=== PATIENT | male | born 1965 | race Two or more races ===

== ENCOUNTER 2016-03-26 07:00 | Inpatient (IN) | payer MEDICARE, OTHER ==
[~2016-03-26] VITALS: Ht 182.9 cm; Wt 122.5 kg
[2016-09-06] VITALS (22 sets, daily range): BP systolic 73–143; BP diastolic 38–88; PULSE 58–70; RESP 16–29; Ht 182.9 cm; Wt 122.5 kg
[2016-09-06] MEDS ORDERED: VANCOMYCIN 1 GM (PMX) 250 ML IVPB ONE (06:00)
[2016-09-06] MEDS ORDERED: LACTATED RINGER'S 1,000 ML IV* SCH (06:00)
[2016-09-06] MEDS ORDERED: LANSOPRAZOLE 30 MG CAP PO ONE (06:00)
[2016-09-06] MEDS ORDERED: DEXAMETHASONE 4 MG/ML 1 ML INJ IV ONE (06:00)
[2016-09-06] MEDS ORDERED: CELECOXIB 200 MG CAP PO ONE (06:00)
[2016-09-06] MEDS ORDERED: ONDANSETRON 4 MG INJ IV ONE (06:00)
[2016-09-06] MEDS ORDERED: oxyCODONE (CR) 10 MG TAB [oxyCONTIN] PO ONE (06:00)
[2016-09-06] MEDS ORDERED: ACETAMINOPHEN 1000MG/100ML IV 100 ML IVPB ONE (06:00)
[2016-09-06] MEDS ORDERED: TRANEXAMIC ACID 2,000 MG in SOD CHLORIDE 0.9% 100 ML IVPB ONE ×2 (06:00→10:30)
[2016-09-06] MEDS ORDERED: AMLO1CAP10 PO (06:29)
--- NOTE | 2016-09-06 07:12 | HPN ---
Date/Time of Note Date/Time of Note DATE: 09/06/16 TIME: 07:12 Interval H&P Admission Note Pt. seen H&P reviewed: No system changes KARY VELAZQUEZ PA-C Sep 06, 2016 07:12
[2016-09-06] MEDS ORDERED: BACITRACIN 50000 UNITS INJ ONE (07:23)
[2016-09-06] MEDS ORDERED: HEPARIN 1000 UNITS/ML 10 ML INJ ONE (07:29)
[2016-09-06] MEDS ORDERED: POLYMYXIN B 500000 UNIT INJ ONE (07:29)
[2016-09-06] MEDS ORDERED: ROPIVACAINE 0.2% 100 ML ONE (07:29)
[2016-09-06] MEDS ORDERED: VANCOMYCIN 1 GM INJ ONE (07:29)
[2016-09-06] MEDS ORDERED: MIDAZOLAM 1 MG/ML 2 ML INJ ONE (07:50)
[2016-09-06] MEDS ORDERED: FENTAnyl 50 MCG/ML VIAL ONE (07:50)
[2016-09-06] MEDS ORDERED: SOD CHLORIDE 0.9% 50 ML, TRANEXAMIC ACID 2,000 MG IRR SCH ×2 (08:00)
[2016-09-06] MEDS ORDERED: HIP PAIN COCKTAIL VANCO INJ SCH ×7 (08:00)
[2016-09-06] MEDS ORDERED: ROPIVACAINE 0.5 % 30 ML VIAL ONE (08:05)
[2016-09-06] MEDS ORDERED: ROCURONIUM 50 MG INJ ONE ×4 (08:05→08:50)
[2016-09-06] MEDS ORDERED: SUCCINYLCHOLINE CHLORIDE 100 MG/5 ML SYG IV ONE (08:05)
[2016-09-06] MEDS ORDERED: PROPOFOL 100 ML ONE ×3 (08:05→11:20)
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
[2016-09-06] MEDS ORDERED: PHENYLephrine (100 MCG/ML) 5ML SYG ONE ×3 (08:27→09:02)
[2016-09-06] MEDS ORDERED: HETASTARCH 6% NACL 500 ML ONE (09:03)
[2016-09-06] MEDS ORDERED: BUPIVACAINE 0.25%/EPI (SDV) 30 ML INJ ONE (09:27)
[2016-09-06] MEDS ORDERED: METOCLOPRAMIDE 10 MG INJ ONE (09:31)
[2016-09-06] MEDS ORDERED: DEXAMETHASONE 4 MG/ML 1 ML INJ ONE (09:31)
[2016-09-06] MEDS ORDERED: ONDANSETRON 4 MG INJ ONE (09:31)
[2016-09-06] MEDS ORDERED: KETOROLAC 30 MG INJ ONE (09:31)
[2016-09-06] MEDS ORDERED: PHENYLephrine 10 MG INJ ONE (09:31)
[2016-09-06] MEDS ORDERED: ROPIVACAINE 0.2% 100ML BAG INJ ONE (09:39)
[2016-09-06] MEDS ORDERED: EPHEDrine SULFATE 50 MG/5 ML SYG IV PRN (10:30)
[2016-09-06] MEDS ORDERED: ONDANSETRON 4 MG INJ IV PRN (10:30)
[2016-09-06] MEDS ORDERED: HYDROmorphONE (0.2 MG/ML) 10ML SYG IV PRN ×3 (10:30)
[2016-09-06] MEDS ORDERED: ALBUMIN HUMAN 5% 250 ML IV PRN (10:30)
[2016-09-06] MEDS ORDERED: METOCLOPRAMIDE 10 MG INJ IV PRN (10:30)
[2016-09-06] MEDS ORDERED: morphine (1 MG/ML) 10ML SYRINGE IV PRN ×3 (10:30)
[2016-09-06] MEDS ORDERED: NEOSTIGMINE 3 MG/3 ML SYRINGE ONE (10:44)
[2016-09-06] MEDS ORDERED: GLYCOPYRROLATE 1 MG INJ ONE (10:44)
[2016-09-06] MEDS ORDERED: GELATIN SIZE 100 SPONGE ONE (11:39)
[2016-09-06] MEDS ORDERED: ZOLPIDEM 5 MG TAB PO PRN (12:30)
[2016-09-06] MEDS ORDERED: NACL 0.9% 3 ML SYG IV SCH (12:30)
[2016-09-06] MEDS ORDERED: SENNA/DOCUSATE NA (8.6MG/50MG) TAB PO PRN (12:30)
[2016-09-06] MEDS ORDERED: BISACODYL 10 MG SUPP PR PRN (12:30)
[2016-09-06] MEDS ORDERED: DIPHENHYDRAMINE 50 MG INJ IM PRN (12:30)
[2016-09-06] MEDS ORDERED: NALOXONE (0.4 MG/ML) INJ IV PRN (12:30)
[2016-09-06] MEDS ORDERED: NA PHOSPHATE/BIPHOS 133 ML ENEMA PR PRN (12:30)
[2016-09-06] MEDS ORDERED: HYDROmorphONE 0.2 MG/ML PCA IV PRN (12:30)
[2016-09-06] MEDS ORDERED: MAGNESIUM HYDROXIDE 30ML CUP PO PRN (12:30)
[2016-09-06] MEDS ORDERED: DOCUSATE SODIUM 100 MG CAP PO ONE (12:30)
[2016-09-06] MEDS ORDERED: BETHANECHOL 25 MG TAB PO PRN (12:30)
[2016-09-06] MEDS ORDERED: ASPIRIN (EC) 325 MG TAB PO ONE (12:30)
--- NOTE | 2016-09-06 12:34 | PDOCDIS ---
Discharge Instructions DIAGNOSIS Discharge Diagnosis: Status Post Left Total Hip Arthroplasty via posterior route CONDITION Patient Condition: Stable HOME CARE INSTRUCTIONS: Diet Instructions: Regular ACTIVITY: Activity Restrictions: Slowly Increase Activity Rest between Activity Avoid heavy lifting No Sexual Activity Do not Drive Do not operate Machinery Do not operate Power Tool Avoid Heavy Housework Keep Limb Elevated Weight Bearing (as tolerated and with help of front wheeled walker if needed.) Bathing Restrictions: Shower (with Tegaderm with pad. May remove tegaderm after area is dry and repeat with new Tegaderm each day until doretha have been removed around 10 days.) FOLLOW UP/APPOINTMENTS Appointments 09/26/16 at 2:15PM DVT Prophylaxis Pain Meds as needed KARY VELAZQUEZ PA-C Sep 06, 2016 12:34
[2016-09-06] MEDS ORDERED: CEFAZOLIN 1 GM/50 ML (PMX) 50 ML IVPB ONE (12:52)
--- NOTE | 2016-09-06 13:04 | RADRPT ---
PROCEDURE: XR Left Hip and pelvis. CLINICAL INDICATION: Left hip pain and pelvic pain. Intraoperative. TECHNIQUE: Two views. Frontal pelvis and frontal and left hip. COMPARISON: No prior studies are available for comparison. FINDINGS: Images demonstrate Scratch then the first image demonstrates severe degenerative change of the left hip and marked deformity of the left femoral head. The second image demonstrates component of a lef t hip total arthroplasty with satisfactory alignment. There is gas in the soft tissues related to the surgery. Pelvis is not completely included on the image. IMPRESSION: 1. Satisfactory intraoperative appearance of the left hip. 2. Otherwise unremarkable study. RPTAT: QQ .Efraín Mercado MD, MD Date Time Electronically viewed and signed by .Efraín Mercado MD, MD on 09/06/2016 13:04 .R/
[2016-09-06] MEDS: CEFAZOLIN 1 GM/50 ML (PMX) 50 ML IVPB SCH ×2 (13:05→21:03)
[2016-09-06] MEDS: ACETAMINOPHEN 1000MG/100ML IV 100 ML IVPB SCH ×2 (13:11→20:12)
[2016-09-06] MEDS: ONDANSETRON 4 MG INJ IV SCH ×2 (13:11→18:55)
--- NOTE | 2016-09-06 13:23 | PN ---
Date/Time of Note Date/Time of Note DATE: 09/06/16 TIME: 13:17 Assessment/Plan VTE Prophylaxis VTE Prophylaxis Intervention: other (on aspirin) Lines/Catheters IV Catheter Type (from Nrsg): Peripheral IV Subjective 24 Hr Interval Summary Free Text/Dictation josé is send in the recovery room, post op hip surgery not much discomfort but still has effects of epidural. bp is low without sx, drinking fluids and getting iv fluids alert and talkative vs with low bp lungs clear hr ok abd soft surg site clean, covered l hip ext with residual weakness from epidural in the legs Exam/Review of Systems Vital Signs Vitals Vital Signs Date Time Temp Pulse Resp B/P Pulse Ox O2 Delivery O2 Flow Rate FiO2 09/06/16 12:37 98.7 09/06/16 12:32 66 22 84/48 96 Room Air Medications Medications Current Medications Lactated Ringer's 1,000 ml @ 125 mls/hr Q8H IV* Last administered on 06:33; Admin Dose 125 MLS/HR; Start 09/06/16 at 06:00; Stop 09/06/16 at 13: 59 Dextrose/Lactated Ringer's (D5-Lr) 1,000 ml @ 80 mls/hr [id number] IV ; Start at 12:23 Hydromorphone HCl (Dilaudid HACK DRIVER) Q4PCA PRN IV SEVERE PAIN 8-10; Start at 12:30; Stop 09/07/16 at 09:00 Oxycodone HCl (Roxicodone) 20 mg Q3H PRN PO PAIN LEVEL 8-10; Start 09/07/16 at 09:00 Oxycodone HCl (Roxicodone) 10 mg Q3H PRN PO PAIN LEVEL 4-7; Start 09/07/16 at 09:00 Oxycodone HCl 5 mg 5 mg Q3H PRN PO PAIN LEVEL 1-3; Start 09/07/16 at 09:00 Acetaminophen (Ofirmev 1000mg/ 100ml Iv) 100 ml @ 400 mls/hr Q8H IVPB Last administered on 09/06/16 13:11; Admin Dose 400 MLS/HR; Start 09/06/16 at 13:00 ; Stop 09/08/16 at 05:14 Zolpidem Tartrate (Ambien) 5 mg HS PRN PO INSOMNIA; Start 09/06/16 at 12:30 Ondansetron HCl 4 mg 4 mg Q6H IV Last administered on 09/06/16 13:11; Admin Dose 4 MG; Start 09/06/16 at 13:00; Stop 09/07/16 at 07:01 Cefazolin Sodium (Ancef 1 Gm/50 ml (Pmx)) 50 ml @ 100 mls/hr Q8H IVPB Last administered on 09/06/16 13:05; Admin Dose 100 MLS/HR; Start 09/06/16 at 13:00 ; Stop 09/07/16 at 05:29 Aspirin (Ecotrin) 325 mg BID PO ; Start 09/07/16 at 09:00 Celecoxib (Celebrex) 200 mg BID PO ; Start 09/07/16 at 09:00 Dexamethasone (Decadron) 4 mg DAILY@07 IV ; Start 09/07/16 at 07:00; Stop at 06:59 Pantoprazole (Protonix Tab) 40 mg DAILY@06 PO ; Start 09/07/16 at 06:00 Docusate Sodium/ Ferrous Fumarate (Vinnie-Sequels) 1 tab BID PO ; Start 09/07/16 at 09:00 Docusate Sodium (Colace) 200 mg BID PO ; Start 09/07/16 at 09:00; Stop 09/09/16 at 21:01 Simethicone (Mylicon) 80 mg TID PRN PO DISTENSION/GAS/BLOATING; Start 09/06/16 at 12:30 Senna/Docusate Sodium (Senokot-S) 2 tab BID PRN PO CONSTIPATION; Start at 12:30 Magnesium Hydroxide (Milk Of Mag) 30 ml HS PRN PO CONSTIPATION; Start 09/06/16 at 12:30 Bisacodyl (Dulcolax Supp) 10 mg DAILY PRN SC CONSTIPATION; Start 09/06/16 at 12 :30 Sodium Biphosphate/ Sodium Phosphate (Fleet Enema) 133 ml DAILY PRN SC CONSTIPATION; Start 09/06/16 at 12:30 Diphenhydramine HCl (Benadryl) 25 mg Q4H PRN IM ITCHING OR RASH; Start at 12:30 Ketorolac Tromethamine (Toradol) 15 mg DAILY@06 PRN INJ ADMINSTER BY SURGEON ONLY; Start 09/07/16 at 06:00; Stop 09/09/16 at 06:01 Bupivacaine HCl/ Epinephrine Bitart (Marcaine 0.25%/ Epi (Sdv) 30 ml) 20 ml DAILY@06 PRN INJ ADMINSTER BY SURGEON ONLY; Start 09/07/16 at 06:00; Stop 09/09 at 06:01 Naloxone HCl (Narcan) 0.2 mg Q2M PRN IV DECREASED REPIRATORY RATE; Start at 12:30 VICKIE NAIDU MD Sep 06, 2016 13:23
--- NOTE | 2016-09-06 13:26 | RADRPT ---
PROCEDURE: XR left hip. CLINICAL INDICATION: Postoperative hip replaced TECHNIQUE: AP view available for review. COMPARISON: None available FINDINGS: There is a postoperative left total hip replacement. There is no evidence of loosening of the prosth esis. There is normal mineralization, architecture and alignment. No fractures are identified. No osseous lesions are present. The joints are unremarkable. There are postoperative soft tissue keyes ges. [address] IMPRESSION: Postoperative left total hip replacement Postoperative soft tissue changes RPTAT: HGDB .Darian Michaud MD, MD Date Time Electronically viewed and signed by .Darian Michaud MD, MD on 09/06/2016 13:25 .B/
[2016-09-06] MEDS: DEXTROSE 5%-LR 1,000 ML IV SCH (14:01)
[2016-09-06] MEDS ORDERED: oxyCODONE 5 MG TAB PO PRN ×2 (14:50→15:00)
[2016-09-06] MEDS: oxyCODONE 5 MG TAB PO PRN ×3 (15:20→22:10)
[2016-09-06] MEDS ORDERED: TRANEXAMIC ACID 1,230 MG in SOD CHLORIDE 0.9% 100 ML IVPB ONE ×2 (15:30→18:30)
[2016-09-07] MEDS: DEXTROSE 5%-LR 1,000 ML IV SCH ×2 (00:53→12:54)
[2016-09-07 01:00] VITALS: BP 117/69; PULSE 88; RESP 18
[2016-09-07] MEDS: ONDANSETRON 4 MG INJ IV SCH ×2 (01:14→06:38)
[2016-09-07] MEDS: oxyCODONE 5 MG TAB PO PRN ×5 (01:14→20:38)
[2016-09-07 05:12] LABS: ADD SCAN DIFF NO
[2016-09-07 05:20] VITALS: BP 127/64; RESP 18
[2016-09-07] MEDS: PANTOPRAZOLE (EC) 40 MG TAB PO SCH (05:21)
[2016-09-07] MEDS: CEFAZOLIN 1 GM/50 ML (PMX) 50 ML IVPB SCH (05:21)
[2016-09-07 05:22] LABS: BASOPHILS % 0.1 % (0.0-2.0); HEMATOCRIT 35.4 % (42.0-52.0); HEMOGLOBIN 11.7 g/dl (14.0-18.0); LYMPHOCYTES % 6.3 % (15.0-51.0); MEAN CORPUSCULAR HEMOGLOBIN 29.7 pg (29.0-33.0); MEAN CORPUSCULAR HGB CONC 33.1 g/dl (32.0-37.0); MEAN CORPUSCULAR VOLUME 89.8 fl (82.0-101.0); MEAN PLATELET VOLUME 9.6 fl (7.4-10.4); MONOCYTE # 1.2 10^3/ul (0.3-0.9); MONOCYTES % 7.3 % (0.0-11.0); NEUTROPHIL # 13.7 10^3/ul (1.6-7.5); NEUTROPHILS % 85.7 % (39.0-77.0); PLATELET COUNT 272 10^3/UL (140-415); RED BLOOD COUNT 3.94 10^6/ul (4.70-6.10); RED CELL DISTRIBUTION WIDTH 13.4 % (11.5-14.5)
[2016-09-07] MEDS ORDERED: BUPIVACAINE 0.25%/EPI (SDV) 30 ML INJ INJ PRN (06:00)
[2016-09-07] MEDS ORDERED: KETOROLAC 30 MG INJ INJ PRN (06:00)
[2016-09-07] MEDS: ACETAMINOPHEN 1000MG/100ML IV 100 ML IVPB SCH ×3 (06:38→20:38)
[2016-09-07] MEDS: DEXAMETHASONE 4 MG/ML 1 ML INJ IV SCH (06:38)
[2016-09-07 07:12] VITALS: BP 106/51; RESP 18
[2016-09-07] MEDS: CELECOXIB 200 MG CAP PO SCH ×2 (08:35→20:42)
[2016-09-07] MEDS: ASPIRIN (EC) 325 MG TAB PO SCH ×2 (08:35→20:37)
[2016-09-07] MEDS: FERROUS FUMARATE (SR) TAB PO SCH ×2 (08:35→20:37)
[2016-09-07] MEDS: DOCUSATE SODIUM 100 MG CAP PO SCH ×2 (08:35→20:37)
[2016-09-07] MEDS ORDERED: oxyCODONE 5 MG TAB PO PRN ×3 (09:00)
--- NOTE | 2016-09-07 10:45 | PN ---
DATE: 09/07/2016 The patient is postop day #1 following a left hip replacement. He has had no pain since the surgery . He has been up and about with physical therapy and he is doing incredibly well. He can get in an d out of bed by himself and he walks without any assistance at all using his walker. (This was also demonstrated to me directly). The patient is anxious to go home. He has a dog at home that he wan ts to take care of and he is obsessed with getting home as soon as possible. His dressings were changed. The wound looks excellent. Vital signs are stable. I am reluctant to let him go home so soon and he has agreed that he will stay the night and he can g o home tomorrow morning. Dictated By: BRIGHT ESPINOZA/OLYA Conf#: [id number] DID#: [id number]
[2016-09-07 20:01] VITALS: BP 102/53; RESP 17
[2016-09-08] MEDS: oxyCODONE 5 MG TAB PO PRN ×6 (01:45→22:26)
[2016-09-08] MEDS: DEXTROSE 5%-LR 1,000 ML IV SCH ×2 (01:53→14:23)
[2016-09-08 05:05] LABS: ADD SCAN DIFF NO
[2016-09-08 05:10] LABS: BASOPHILS % 0.3 % (0.0-2.0); EOSINOPHILS # 0.1 10^3/ul (0.0-0.5); EOSINOPHILS % 0.8 % (0.0-7.0); HEMATOCRIT 33.5 % (42.0-52.0); HEMOGLOBIN 10.8 g/dl (14.0-18.0); LYMPHOCYTES # 2.1 10^3/ul (0.8-2.9); LYMPHOCYTES % 17.8 % (15.0-51.0); MEAN CORPUSCULAR HEMOGLOBIN 29.8 pg (29.0-33.0); MEAN CORPUSCULAR HGB CONC 32.2 g/dl (32.0-37.0); MEAN CORPUSCULAR VOLUME 92.3 fl (82.0-101.0); MEAN PLATELET VOLUME 9.7 fl (7.4-10.4); MONOCYTES % 8.8 % (0.0-11.0); NEUTROPHIL # 8.4 10^3/ul (1.6-7.5); NEUTROPHILS % 71.5 % (39.0-77.0); PLATELET COUNT 240 10^3/UL (140-415); RED BLOOD COUNT 3.63 10^6/ul (4.70-6.10); RED CELL DISTRIBUTION WIDTH 13.8 % (11.5-14.5); WHITE BLOOD COUNT 11.7 10^3/ul (4.8-10.8)
[2016-09-08] MEDS: ACETAMINOPHEN 1000MG/100ML IV 100 ML IVPB SCH (05:23)
[2016-09-08] MEDS: PANTOPRAZOLE (EC) 40 MG TAB PO SCH (05:23)
[2016-09-08] MEDS: DEXAMETHASONE 4 MG/ML 1 ML INJ IV SCH (06:25)
[2016-09-08 08:36] VITALS: BP 128/69; RESP 16
[2016-09-08] MEDS: FERROUS FUMARATE (SR) TAB PO SCH ×2 (09:52→21:12)
[2016-09-08] MEDS: ASPIRIN (EC) 325 MG TAB PO SCH ×2 (09:52→21:13)
[2016-09-08] MEDS: CELECOXIB 200 MG CAP PO SCH ×2 (09:52→21:13)
[2016-09-08] MEDS: DOCUSATE SODIUM 100 MG CAP PO SCH ×2 (09:53→21:12)
--- NOTE | 2016-09-08 18:26 | PN ---
DATE: 09/08/2016 Patient underwent a left total hip replacement on 09/06/2016. The day after the surgery (yesterday) , the patient was anxious to get home to be with his dog. Later on he changed his mind because his mother took over the care of his dog. However, the patient was walking without any human assistance yesterday. He has decided that he would like to stay until tomorrow. His wound is clean and heali ng well. Dressings were changed. VITAL SIGNS: Temperature 97.3, hemoglobin 10.8, white cell count of 11.7. Plans are for the patient to go home tomorrow morning after physical therapy. Dictated By: BRIGHT ESPINOZA/OLYA Conf#: [id number] DID#: [id number]
[2016-09-08 19:37] VITALS: BP 124/64; RESP 18
[2016-09-09] MEDS: oxyCODONE 5 MG TAB PO PRN ×4 (01:50→13:24)
[2016-09-09] MEDS: DEXTROSE 5%-LR 1,000 ML IV SCH (02:50)
[2016-09-09 04:55] LABS: ADD SCAN DIFF NO
[2016-09-09 05:04] LABS: BASOPHILS % 0.4 % (0.0-2.0); EOSINOPHILS # 0.2 10^3/ul (0.0-0.5); HEMOGLOBIN 10.6 g/dl (14.0-18.0); LYMPHOCYTES # 2.2 10^3/ul (0.8-2.9); LYMPHOCYTES % 22.6 % (15.0-51.0); MEAN CORPUSCULAR HEMOGLOBIN 29.9 pg (29.0-33.0); MEAN CORPUSCULAR HGB CONC 32.1 g/dl (32.0-37.0); MEAN CORPUSCULAR VOLUME 93.2 fl (82.0-101.0); MEAN PLATELET VOLUME 9.4 fl (7.4-10.4); MONOCYTE # 0.8 10^3/ul (0.3-0.9); MONOCYTES % 8.2 % (0.0-11.0); NEUTROPHIL # 6.4 10^3/ul (1.6-7.5); NEUTROPHILS % 66.1 % (39.0-77.0); PLATELET COUNT 255 10^3/UL (140-415); RED BLOOD COUNT 3.54 10^6/ul (4.70-6.10); RED CELL DISTRIBUTION WIDTH 13.9 % (11.5-14.5); WHITE BLOOD COUNT 9.7 10^3/ul (4.8-10.8)
[2016-09-09] MEDS: PANTOPRAZOLE (EC) 40 MG TAB PO SCH (06:48)
[2016-09-09] MEDS: DEXAMETHASONE 4 MG/ML 1 ML INJ IV SCH (06:49)
--- NOTE | 2016-09-09 07:06 | OPR ---
DATE OF OPERATION: 09/06/2016 PREOPERATIVE DIAGNOSES: 1. Status post fracture-dislocation of the left hip. 2. Exceedingly severe degenerative osteoarthritis of the left hip. 3. Marked shortening of the left leg. 4. Marked destruction of the anatomy of the acetabulum. POSTOPERATIVE DIAGNOSES: 1. Status post fracture-dislocation of the left hip. 2. Exceedingly severe degenerative osteoarthritis of the left hip. 3. Marked shortening of the left leg. 4. Marked destruction of the anatomy of the acetabulum. PROCEDURE: Left total hip replacement. 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 Based on the plain x- rays, we could not proceed based simply on the plain x-rays. A CAT scan was obtained which showed t hat there was probably sufficient anterior, superior, medial and posterior wall. There were areas o f the acetabulum that looked possibly deficient. The CAT scan showed that there was 1.5 cm of bone medially. We had available different kinds of socket with augments that might be used in whatever s ituation we encountered. FINDINGS AT SURGERY: The acetabulum was actually found to be fairly well maintained. The anteroinf erior wall was completely missing, but there was sufficient anterior wall for stability. The sharepoint solutions architect ior, medial and superior stephens were very adequate. Part of the superior wall was a large osteophyte which we left in place to give additional support. The spikes of the acetabular component were not in any way supported by the large osteophyte, but were well embedded in the bone. The patient's digna ne quality was good. The femoral head was completely deformed and arthritic. His femoral bone qual ity was good. This was as would be expected for a 51-year-old male. DESCRIPTION OF PROCEDURE: Under general anesthetic, the patient was placed on the operating table, lying on his right side. An axillary pad was placed under the right chest. The right peroneal nerv e was protectively padded. The patient was secured to the operating table with positioners as well as multiple straps of tape. Before starting the operation, x-rays were obtained of the pelvis and t he table was rotated into position until the obturator foramina were completely symmetrical (as clos e as possible). The left leg, thigh and lower abdomen were now prepared and draped in the usual sterile fashion. An incision made over the lateral aspect of the left thigh. The incision commenced at the greater t rochanter and went distally for about 3 inches and then extended proximally for a further 3 inches. The incision was deepened through the deep fascia to expose the lateral aspect of the greater troch anter. A Steinmann pin was driven into the pelvis superior to the acetabulum, through a separate stab incis ion. A caliper was now articulated with the Steinmann pin, and the stylus of the caliper was made t o touch the lateral aspect of the greater trochanter. A suture byron was set into the soft tissues o vernell the greater trochanter. A caliper, the pin and the suture byron were used throughout the operati on for leg length measurements. The aim of the operation was to try and lengthen his leg anything u p to about three-quarters of an inch. I told him that it would not be possible to get the full kennedy thening. The short external rotators and the capsular hip were now detached from the posterior lip of the gre ater trochanter. The hip was dislocated and the femoral head was brought into view. The femoral ne ck was now osteotomized with a saw and the femoral head was removed. By suitable retraction, the acetabulum was now exposed. Soft tissues around the acetabulum were re moved. Multiple osteophytes around the acetabulum were removed. A small drill was used to sound th e various stephens of the acetabulum to see how much bone there might be. The superior wall was very d eficient. The medial wall had excellent bone. Anterior and posterior stephens were somewhat deficient . The starting size of the acetabulum was 58 mm as measured by the use of the acetabular trials. This acetabulum was now sequentially reamed until up to a reamer of 63 mm. A trial acetabular component was now installed, it was found to fit very well. The trial was removed. The permanent acetabular component was now installed with an orientation of 20 degrees of anteversion and 40 degrees of abduction. When we removed the handle to insert the socket, the socket was not fully seated so a long punch was used to seat it all the way. Remeasurement indicated that the socket had lost some of its antevers ion. A 10-degree lip was now therefore selected on the trial acetabular component. The proximal femur is now prepared and broached in the usual way to accept a Corail femoral stem. W massimo a size [address], the hip was reduced and it was found that with the +1.5 mm femoral head/neck assembly, the leg had been lengthened by approximately 12 mm. The Daniela test w as negative. The trial reduction was repeated with a +5 mm femoral head/neck assembly and it was found that the O gauri test was too tight. The broaches were removed after dislocating the hip. The permanent femoral component was now instal led. The wound was frequently irrigated throughout the procedure with normal saline containing antibiotic s with pulsatile lavage. The permanent femoral head was now installed. Note that we used a metal f emoral head because he is a young man, very overweight and very active. The hip was now reduced. Superficial and deep Hemovac drains were placed. The wound was now closed using interrupted Vicryl in the deep tissues and doretha on the skin. Usual sterile dressings were applied. The patient was rolled onto his back, an abduction pillow was placed between his legs. The patient returned to the recovery room in good and stable condition. There were no problems or complications as far as we k now. IMPLANT COMPONENT INFORMATION: ACETABULAR COMPONENT: 64 mm Bend Tri-Steven cup. FEMORAL COMPONENT: Corail KA 13. ACETABULAR LINER: 10-degree lip set posteriorly. FEMORAL HEAD: 36 mm. FEMORAL NECK: +1.5 mm. FOOTNOTE: Each time the hip was reduced with the trials in place, the hip was put through a full fu nctional range of motion in every direction to the limits of motion. A 10-degree lip was selected f or stability on the posterior aspect of the acetabular liner. ANTICIPATED BLOOD LOSS: Possibly 200 mL. Dictated By: ELVER ESPINOZA/OLYA Conf#: [id number] DID#: [id number]
--- NOTE | 2016-09-09 07:51 | PN ---
Date/Time of Note Date/Time of Note DATE: 09/09/16 TIME: 07:43 Assessment/Plan VTE Prophylaxis VTE Prophylaxis Intervention: ambulation, SCD's, other (Aspirin 325 mg twice daily) Lines/Catheters IV Catheter Type (from Nrsg): Saline Lock Seaman in Place (from Nrsg): No Assessment/Plan Assessment/Plan -Pain Meds as needed -Dress change performed today -ASA for DVT Prophylaxis x 6 weeks outpatient discussed. -Continue monitoring as outpatient on discharge -Follow-up at scheduled postop outpatient appointment or sooner if there is any issue. -Tegaderm dressings given with specific instructions to use as outpatient to keep wound dry until doretha are removed around 10 days postop. -Hip precautions discussed -Patient Stable -Discharge Home with home health provided by [facility] at Subjective 24 Hr Interval Summary 51-year-old male postop day 3 status post left total hip arthroplasty via posterior route. Patient continues to do well. Denies any pain complaints. Denies any calf pain, shortness of breath or chest pain. Patient is up and out of bed and able to ambulate with assistance of front wheeled walker. Patient states that he has been progressing with physical therapy as he is now using crutches for assisted ambulation. Ready to discharge home today with home health pending clearance from physical therapy and internal medicine. Constitutional: ambulates, no complaints Pain Control: well controlled Exam/Review of Systems Vital Signs Vitals Vital Signs Date Time Temp Pulse Resp B/P Pulse Ox O2 Delivery O2 Flow Rate FiO2 09/08/16 19:37 98.0 75 18 124/64 98 09/07/16 05:20 Room Air Intake and Output 09/08/16 09/08/16 09/09/16 15:00 23:00 07:00 Intake Total 1400 ml 940 ml Balance 1400 ml 940 ml Exam Free Text/Dictation -Hemovac: Removed -Pain Cocktail Drains: Removed -Incision: Clean, Dry and Intact without any redness or drainage -Thigh soft -Patient can flex at the left hip up to 30-40. -5/5 Quadriceps, Tibialis Anterior, EHL Gastrocnemius/Soleus and Peroneals -Normal Sensation -Palpable DP/PT, Capillary Refill <2 secs -No Distal Edema -Negative Liza Sign/No calf pain -Toes Freely Movable Constitutional: alert, oriented, well developed Results Result Diagram: 09/09/16 0415 KARY VELAZQUEZ PA-C Sep 09, 2016 07:51
--- NOTE | 2016-09-09 07:57 | DS ---
Date/Time of Note Date/Time of Note DATE: 09/09/16 TIME: 07:52 Discharge Summary Admission/Discharge Info Admit Date/Time Sep 06, 2016 at 05:49 Discharge Date/Time Sep 09, 2016 Final Diagnosis Status post left total hip replacement via posterior route. Patient Condition: Stable Hospital Course On the day of admission, the patient underwent left total hip replacement via posterior route Intraoperative complications: None Postoperative complications: None The patient was given prophylactic antibiotics and anticoagulants. On the day of surgery and first postoperative day patient was started on gait training and was taught usual restrictions following posterior hip replacement. Patient was given epidural anesthesia and had a prolonged decreased sensation to the bilateral lower extremities as well as limited functionality. Patient had a repeat consult with anesthesiologist (Dr. Chaudhari) postoperatively on [facility] as well as with myself. Reassurance was provided. As time progressed, patient returned to normal sensation to the bilateral lower extremities as well as return of functionality to the bilateral lower extremities. Suction drain removed on the first postoperative day and the dressings were changed. The wound was found to be clean and healing well. There was no sign of infection. Pain cocktail given. On the second postoperative day, patient continued with inpatient PT. Dressings were changed. Wound was found to be clean and healing well. No signs of infection. Pain cocktail given and drains removed. On the day of discharge, the wound was clean and healing well; there was no sign of infection. The dressings were changed. Discharge Temperature: 98 Discharge White Blood Cell Count: 9.7 Discharge Hemoglobin: 10.6 The patient was discharged home. Arrangements were made for visiting nurses and home health/physical therapy. The patient will be seen in office at scheduled postoperative evaluation date given on their preoperative exam. Should patient complain of any problems prior to scheduled postoperative evaluation date, they may call into outpatient clinic to determine if they need to be scheduled at sooner appointment to be seen immediately if needed. Discharge medications: As per medication reconciliation form. Postop medications of [place] 10/325, Restoril 15 mg, gabapentin 100 mg and aspirin 325 mg given to patient on preoperative visit. DVT prophylaxis discussed in detail. Diet: Same as preadmission diet. This is Kary Rondon PA-C dictating discharge summary for Dr. Elver Dukes. Home Meds Reported Medications Amlodipine Besylate/Benazepril (Amlodipine-Benazepril 5-20 mg) 1 Each Capsule, 1 EACH PO DAILY, CAP 09/06/16 Pending Labs Laboratory Tests Test 09/09/16 04:15 Basophils # 0.010^3/ul (0.0-0.1) Basophils % 0.4% (0.0-2.0) Eosinophils # 0.210^3/ul (0.0-0.5) Eosinophils % 2.0% (0.0-7.0) Hematocrit 33.0% (42.0-52.0) Hemoglobin 10.6g/dl (14.0-18.0) Lymphocytes # 2.210^3/ul (0.8-2.9) Lymphocytes % 22.6% (15.0-51.0) Mean Corpuscular Hemoglobin 29.9pg (29.0-33.0) Mean Corpuscular Hemoglobin Concent 32.1g/dl (32.0-37.0) Mean Corpuscular Volume 93.2fl (82.0-101.0) Mean Platelet Volume 9.4fl (7.4-10.4) Monocytes # 0.810^3/ul (0.3-0.9) Monocytes % 8.2% (0.0-11.0) Neutrophils # 6.410^3/ul (1.6-7.5) Neutrophils % 66.1% (39.0-77.0) Nucleated Red Blood Cells # 0.010^3/ul (0.0-0.0) Nucleated Red Blood Cells % 0.0/100WBC (0.0-0.0) Platelet Count 28590^3/UL (140-415) Red Blood Count 3.5410^6/ul (4.70-6.10) Red Cell Distribution Width 13.9% (11.5-14.5) White Blood Count 9.710^3/ul (4.8-10.8) KARY VELAZQUEZ PA-C Sep 09, 2016 07:57
[2016-09-09] MEDS: CELECOXIB 200 MG CAP PO SCH (08:57)
[2016-09-09] MEDS: FERROUS FUMARATE (SR) TAB PO SCH (08:57)
[2016-09-09] MEDS: DOCUSATE SODIUM 100 MG CAP PO SCH (08:57)
[2016-09-09] MEDS: ASPIRIN (EC) 325 MG TAB PO SCH (08:57)
[2016-09-09 10:12] VITALS: BP 139/72; RESP 18
== END 2016-09-09 14:45 | disposition home or self-care (01) | DRG 470 ==
LOC: REC 09-06 05:49 → MS1 09-06 13:45
PROC: 0SRB02A Replacement of Left Hip Joint with Metal on Polyethylene Synthetic Substitute, Uncemented, Open Approach (ICD-10-PCS; principal; 2016-09-06 08:00)
DX: M16.12 Unilateral primary osteoarthritis, left hip (principal); I10 Essential (primary) hypertension; M21.70 Unequal limb length (acquired), unspecified site; M24.7 Protrusio acetabuli; R01.1 Cardiac murmur, unspecified; Z87.81 Personal history of (healed) traumatic fracture; Z88.6 Allergy status to analgesic agent
CPT/HCPCS: 73500; 73530; 85025; 86850; 86900; 86901; 86920; 87081; 88304; 88311; 97110; 97116; 97163; 97530; C1776; J0131; J0171; J0330; J0690; J0735; J1100; J1644; J1885; J2250; J2274; J2370; J2405; J2710; J2765; J2795; J3010; J3370; J7120; J7121

== ENCOUNTER → 2016-09-05 | Outpatient (CLI) | payer MEDICARE, OTHER ==
[~2016-09-05] MED LIST: AMLO1CAP10 PO
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
== END | disposition home or self-care (01) ==
LOC: HKI 14:14
DX: Z01.818 Encounter for other preprocedural examination (principal); M25.852 Other specified joint disorders, left hip
CPT/HCPCS: G0463

== ENCOUNTER → 2016-10-03 | Outpatient (CLI) | payer MEDICARE, OTHER ==
--- NOTE | 2016-10-03 15:42 | PN ---
Date/Time of Note Date/Time of Note DATE: 10/03/16 TIME: 15:36 Outpatient Progress Note Chief Complaint 4 weeks status post left total hip replacement via posterior route. HPI 51-year-old male presents today for 4 week postop appointment status post left total hip replacement via posterior route. Patient originally scheduled for follow-up last week but cannot make it due to transportation. Since he was seen in the hospital/upon discharge, patient states that he continues to progress. He does experience pain however. Pain is primarily when he rises to a seated and standing position after he has been resting. When asked, patient states that he does not perform any independent at home therapy. He does perform therapy when home health comes a couple days throughout the week. When patient has pain onset, he rates it at a 7/10 in local to the anterior hip/ groin region. Patient did have one episode of muscle spasm about 2 weeks ago. Denies any repeat event. Spasm was self-limiting. Denies any chest pain, tightness, calf pain or shortness of breath. Patient continues taking aspirin. Patient has finished his [place] 10/325 mg prescription. Denies any falls. Uses cane for assisted ambulation. Has stiffness with flexion to the hip. Review of Systems Const: No Fever, no chills, no Fatigue, normal appetite, no diaphoresis. Resp: No SOB, no wheezing, no chest pain. CV: No chest pain, no palpitaions, no GONZALEZ. Physical Exam Height 6 feet, weight 272 pounds. General Appearance: well-developed, well-nourished, in no acute distress. Left hip: Patient use a single-point cane for assisted ambulation. Slight limp. No pain with ambulation today. Wound site/surgical wound is clean dry and intact and healing well. No signs of infection. Patient is able to actively flex the hip up to 90. Patient is able to achieve full extension. Abduction out to 45. Patient is able to adduction to -10. 5/5 strength on resistance to the hip flexors and extensors. No calf pain/negative Homans sign. Allergies Coded Allergies: meperidine (Unverified Allergy, Unknown, 09/06/16) Assessment/Plan -Wound healing well after staple removal. No signs of infection. -Continue ASA 325 mg twice daily for DVT prophylaxis until 6 weeks status post surgery. -Continue hip precautions until 6 weeks status post surgery -No signs of DVT. -Patient progressing well. -Repeat prescription for [place] 10/325 mg #45 tablets provided today. Advised to take every 6 hours as needed for severe pain only. Patient may also take a tablet prior to initiating physical therapy to the patient is not limited by pain. Patient advised to adopt a home exercise program with instructions provided by physical therapist. He is not performing any home exercise which could be the cause of his stiffness to the hip. Hip precautions discussed in regards to appropriate exercises to perform status post surgery so that he does not "overdo it." -Follow-up at 6 week postop appointment. X-rays will be performed at 6 weeks postoperative appointment. -Patient made aware that they may follow-up sooner, should they experience any issues or complications as we will be glad to see them. -Order for outpatient physical therapy given today with focus on improved range of motion and mobility to the hip. Antibiotic card provided for patient. Patient made aware that dental prophylaxis will be necessary prior to any dental procedure for the remainder of their lifetime. Patient is aware that they must contact their dentist prior to any procedure to inform them of previous joint replacement with prosthesis implant so appropriate antibiotic may be prescribed to lower risk of joint infection status post surgery. Card will also serve as confirmation should patient be traveling and have to go through security such as at an airport. Medications Home Meds Reported Medications Amlodipine Besylate/Benazepril (Amlodipine-Benazepril 5-20 mg) 1 Each Capsule, 1 EACH PO DAILY, CAP 09/06/16 KARY VELAZQUEZ PA-C Oct 03, 2016 15:42
== END | disposition home or self-care (01) ==
LOC: HKI 14:45
DX: Z47.1 Aftercare following joint replacement surgery (principal); Z96.642 Presence of left artificial hip joint

== ENCOUNTER → 2016-10-31 | Outpatient (CLI) | payer MEDICARE, OTHER ==
--- NOTE | 2016-10-31 14:21 | RADRPT ---
PROCEDURE: XR pelvis/left hip. CLINICAL INDICATION: Hip pain TECHNIQUE: AP pelvis/lateral left hip view performed. COMPARISON: No prior studies are available for comparison. FINDINGS: The There is no evidence of loosening of the prosthesis. No hardware failure identified. There is mild right hip osteoarthrosis. This is associated with joint space narrowing, subchondral s clerosis and osteophytosis. There is normal osseous mineralization. No fractures or osseous lesion s are identified. The soft tissues are unremarkable. IMPRESSION: Left total hip replacement. Mild right hip osteoarthrosis. RPTAT: HGDB .Darian Michaud MD, Date Time Electronically viewed and signed by .Darian Michaud MD, on 10/31/2016 14:21 .B/
--- NOTE | 2016-10-31 14:41 | PN ---
Date/Time of Note Date/Time of Note DATE: 10/31/16 TIME: 14:36 Outpatient Progress Note Chief Complaint 2 month postop left total hip arthroplasty HPI 51-year-old male presents today for 2 month postoperative visit status post left total hip arthroplasty on 09/06/2016. Patient continues to walk with cane. Has been walking his dog. Patient denies any at home exercises. He has completed at home physical therapy. Patient states that there was a period where his insurance was cut off and was unable to start his postoperative outpatient physical therapy. Insurance has resumed last week. This could be why patient missed his last appointment for follow-up. Denies any falls. Denies any chest pain/tightness, shortness of breath or calf pain. Patient states that he has been sleeping on the left side which creates discomfort. He does have complaints of weakness with flexion to the hip flexors. Review of Systems Const: No Fever, no chills, no Fatigue, normal appetite, no diaphoresis. Resp: No SOB, no wheezing, no chest pain. CV: No chest pain, no palpitaions, no GONZALEZ. Physical Exam Height 6 feet, weight 272 pounds General Appearance: well-developed, well-nourished, in no acute distress. Left hip: Single-point cane for assisted ambulation. Well-healed surgical scar. Patient is able to flex the left hip up to 50. 5/5 strength on resistance with flexion and extension. Full extension. 0-45 with abduction. Patient has discomfort with flexion. Normal sensory examination to light touch. X-ray of the left hip performed on 10/31/2016 showing all components appearing well aligned, attached and integrated to the bone. No signs of any lucency between metal and bone. Allergies Coded Allergies: meperidine (Unverified Allergy, Unknown, 09/06/16) Assessment/Plan -Patient progressing okay. Has not been performing at home exercises. -Surgical wound continues to heal well. -No signs of infection or DVT on exam. -X-rays showing no abnormalities in regards to prosthesis attachment to bone. -Antibiotic prophylaxis card provided today. -Patient may discontinue hip precautions at this time. -Patient is out of pain medications and would like repeat prescription to perform while doing therapy. Refill of [place] 5/325 mg every 8 hours as needed severe pain only #45 tablets provided today. Patient advised to take tablet prior to initiating outpatient physical therapy. Lengthy discussion regarding patient compliance and initiating postoperative therapy had with patient today to ensure that patient has optimal rehabilitation. He has not been performing at home exercises. Education provided today. Patient has yet to initiate outpatient physical therapy. Prescription was provided for patient last time he was seen in office. Strongly advised to initiate right away. -Follow-up 2 months. Dental prophylaxis discussed in detail today. Patient given prophylaxis card with antibiotic options. Should patient have allergy to specific medication ( eg penicillin) alternative options are also provided on the card. Patient is aware that antibiotics should be taken prior to any procedures to prevent increased risk of infection to the joint. Patient is aware that this will be for the rest of their life. Patient states understanding and compliance. Dr. Dukes present during exam and agrees with plan. Medications Home Meds Reported Medications Amlodipine Besylate/Benazepril (Amlodipine-Benazepril 5-20 mg) 1 Each Capsule, 1 EACH PO DAILY, CAP 09/06/16 KARY VELAZQUEZ PA-C Oct 31, 2016 14:41
== END | disposition home or self-care (01) ==
LOC: HKI 13:38
DX: Z47.1 Aftercare following joint replacement surgery (principal); Z96.642 Presence of left artificial hip joint
CPT/HCPCS: 73502

== ENCOUNTER → 2016-12-19 | Outpatient (CLI) | payer MEDICARE, OTHER ==
--- NOTE | 2016-12-19 17:02 | PN ---
Date/Time of Note Date/Time of Note DATE: 12/19/16 TIME: 16:47 Outpatient Progress Note Chief Complaint Status post left total hip replacement on 09/06/2016 HPI 51-year-old male presents today for postoperative visit status post left total hip replacement on 09/06/2016. Patient is about 4 months status post surgery. Patient states he continues with soreness to the right hip and pain. Patient states that with activity pain can become severe. Patient was last seen on 10/31. There was concerns regarding patient compliance especially with initiating physical therapy. Refill of [place] 5/325 mg #45 tablets provided on last visit. Patient states that Hayti 5/325 was grade at managing patient's pain complaints. He does state however, that 3 weeks ago he presented to his primary care practitioner MURRAY Parnell and was provided with Hayti 5/325 mg and continued to experience pain as medication was not effective. Patient describes pain as GI pain. Patient states that he took medications once and then discarded and would like refill of the medication that was given here. 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 Denies any falls or recent injury. On average, patient states that his pain can reach a 7 out of 10 on the pain scale. Currently, patient states that his pain is at 7/10. Review of Systems Const: No Fever, no chills, no Fatigue, normal appetite, no diaphoresis. Resp: No SOB, no wheezing, no chest pain. CV: No chest pain, no palpitaions, no GONZALEZ. Physical Exam Blood pressure is 248/116, temperature is 98.5, pulse is 84, respiratory rate is 12, height is 6 feet, weight is 270 pounds General Appearance: well-developed, well-nourished, in no acute distress. Left hip: Slight limp on ambulation. Patient does state that there is discomfort with weightbearing. Patient is seated comfortably at 90 with no pain complaints. Patient is able to fully extend the hip with flexion a little past 90 today. Surgical wound is well-healed. No tenderness to palpation today. Allergies Coded Allergies: meperidine (Unverified Allergy, Unknown, 09/06/16) Assessment/Plan * Lengthy discussion had with patient today regarding significantly elevated blood pressure. Patient does confirm history of hypertension. Patient states that he was seeing his primary care practitioner but states that he has difficulty in regards to finding transportation to get to his visits. Patient was put on antihypertensive medication by primary care practitioner but states that he does not take them. Patient does not recall the name of the medication that was prescribed to him in regards to high blood pressure. It was strongly advised that patient present to an urgent care or emergency room immediately following this visit for closer monitoring given patient's increased weight, history of noncompliance, and significantly elevated blood pressure today. Patient denies any symptoms such as blurry vision, headache, chest pain, chest tightness, calf pain, shortness of breath or difficulty breathing. Patient is not diaphoretic or showing any systemic symptoms at the moment. Nevertheless, it was strongly advised that patient undergo treatment and monitoring to reduce blood pressure. Patient states that he has issues with transportation and will be difficult for him. It was explained that there is a hospital directly behind this building and if he would like we can have him transported to the emergency room so they can monitor. Patient declines. Patient states that he will return to the hospital close to [place], [place] and presented there. It was once again recommended that patient follow-up in her emergency room and the closest one possible but patient continues to respectfully decline. He does confirm however, that he will present to Hospital closer to home. * Patient would like refill of pain medication today. Discussion was had with patient as there is concern as patient states that he filled out a recent prescription for Hayti 5/325 mg about 3 weeks ago by nurse practitioner, Parminder Werner. CURES report was pulled up today and there is no record of any medication dispensed since patient was last seen in this office. This was explained to the patient and patient states that he would like refill of what was given. It was explained that we can give a refill of Hayti 5/325 mg as patient does continue with pain today. Patient states that he would like Hayti 10/325 mg. There is a bit of confusion because on initial presentation in office he states that prescription that he received at his last visit treated his pain adequately and he would like a refill of that prescription which was Hayti 5/325 mg. He states that medication given by his PCP was not effective which was also the same medication. There has been growing concern regarding patient compliance and whether he is using pain medication the way it is supposed to be. Patient states that he is not able to return to work as a aluminum pourer and has explained to myself and Dr. Dukes today. 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 It is difficult today to assess what is true concern in regards to pain and limited functionality based off of patient history. Patient states that he would like refill of Hayti 10/ 325 mg. It was explained that this strength is not indicated at this time especially given patient's history of noncompliance. Patient then goes on to state that he has been taking crystal meth for his pain. At this stage it was explained to the patient that there is great concern regarding his overall health with pain management also being involved. His blood pressure is significantly elevated with a history of hypertension but has not been compliant on his pain medications. He is taking a methamphetamine which could also vasoconstrict which would further increase blood pressure. Patient is adamant in requesting the strongest dose of Hayti today. It was expressed overall concern for patient's general health and it was made clear that patient will definitely get a refill of Hayti 5/325 mg because we do not want patient to be without pain medication but also information to pain specialist were provided today in [place] closest to where patient lives. Different locations such as [place] [facility] provided today with contact information as well as [facility] in [place] contact information provided today. Patient has Medicare/[employer] and these insurances are taken. Patient would need closer monitoring to truly treat pain effectively and patient has been noncompliant status post surgery and has informed us that he has been taking illegal and a drip illicit drugs in regards to crystal meth. Hayti 5/325 mg #45 tablets provided for patient today as well as contact information for aircraft painter apprentice. Patient will continue with aircraft painter apprentice for closer monitoring and alternative options, possibly nerve block, some sort of injection or other therapies that may help. * Patient was also advised to follow-up in 2 months for 6 months postoperative appointment for repeat x-rays and monitoring. There continues to be growing concern regarding patient compliance and overall health as his blood pressure is significantly elevated and patient has not been compliant and postoperative plan. Dr. Dukes was present for examination today and agrees with plan. Medications Home Meds Reported Medications Amlodipine Besylate/Benazepril (Amlodipine-Benazepril 5-20 mg) 1 Each Capsule, 1 EACH PO DAILY, CAP 09/06/16 KARY VELAZQUEZ PA-C Dec 19, 2016 17:01
== END | disposition home or self-care (01) ==
LOC: HKI 14:55
DX: M25.552 Pain in left hip (principal); Z96.642 Presence of left artificial hip joint
CPT/HCPCS: G0463

== ENCOUNTER 2017-11-25 22:02 | Inpatient (IN) | END 2017-11-28 14:15 | disposition home or self-care (01) | DRG 354 ==